=== PATIENT | male | born 1970 | race Caucasian/White ===

== ENCOUNTER 2017-04-24 13:28 | Day surgery (SDC) | payer BC ==
--- NOTE | ~2017-04-24 | OP ---
Record Of Operation [facility] [address] [place]. [address] NAME: DAVEY IVEY III : 72 STATUS : [facility]#: [id number] AGE: 47 ADM/REG DATE : 04/24/17 MR#: [id number] REPORT SERV DATE: 04/24/17 DICTATED BY: CHELSY RIVERA DATE: 04/24/17 REPORT STATUS : Draft TRANSCRIBED BY: MODL DATE: 04/24/17 DATE OF PROCEDURE: 04/24/2017 PREOPERATIVE DIAGNOSIS: Foreign body, left base of tongue. POSTOPERATIVE DIAGNOSIS: Foreign body, left base of tongue, piece of braided wire. PROCEDURES: Microscopic direct laryngoscopy with removal of foreign body. INDICATIONS: Davey Ivey had a sensation of pain and tenderness in the throat since he ate barbecue about 48 hours ago. In the clinic yesterday, I was able to see a wire protruding from his left base of tongue, almost down into the vallecula on that side. I counseled him about the risks, benefits, and alternatives of this procedure. The risks include, but are not limited to pain, bleeding, infection, and scarring. He voiced an understanding of those risks and he signed a consent form. DESCRIPTION OF PROCEDURE: Davey was brought to the operating room and positioned on the table in the supine manner. General endotracheal anesthesia was induced. The table was rotated 90 degrees. The patient was prepped and draped in the usual fashion. We intubated with a GlideScope and could actually see the tip of this wire on the GlideScope at intubation. I placed the tooth guard on the upper teeth and used the Dedo laryngoscope to get a good look at his left base of tongue and found a protruding wire down in the vallecula. This was removed with a large cup forceps and we sent that to Pathology for gross identification. Careful examination of the rest of the vallecula, the piriform sinus on both sides, and the hypopharynx and oropharynx revealed no other foreign bodies. The larynx itself looked good and his true vocal cords were normal. The patient was thoroughly suctioned and the Dedo laryngoscope was removed. We did not use the Lewy suspension at any time during this procedure. The white mouth guard was also removed. The patient was cleaned up. He was returned to anesthesia control and extubated in the operating room and moved to the recovery room in good condition. FINDINGS: 1. Silver braided wire removed from left vallecula. 2. Otherwise, normal larynx. The wire was shown to his when I counseled her after the procedure. I also left him with a photograph that we took of the wire. Another photograph was left in the chart. TYRON/CLEMENT Chelsy Rivera M.D. Record Of Operation [address] [address] NAME: DAVEY IVEY III : 72 STATUS : [facility] PAT#: [id number] AGE: 47 ADM/REG DATE : 04/24/17 MR#: [id number] REPORT SERV DATE: 04/24/17 DICTATED BY: CHELSY RIVERA DATE: 04/24/17 REPORT STATUS : Draft TRANSCRIBED BY: CLEMENT DATE: 04/24/17 / [id number] CC: Connie Parsons
[~2017-04-24 13:28] MED LIST: [UNRECOGNIZED DRUG - REMARK] PO
[2017-04-24 14:07] LABS: HEMATOCRIT 45.4 % (40.0-51.0); HEMOGLOBIN 15.7 g/dL (13.6-17.8)
== END 2017-04-24 18:15 | disposition home or self-care (01) ==
LOC: SDC 13:28
PROVIDERS: Otolaryngology
PROC: 0CCS8ZZ Extirpation of Matter from Larynx, Via Natural or Artificial Opening Endoscopic (ICD-10-PCS; principal; 2017-04-24 15:15)
DX: T17.308A Unspecified foreign body in larynx causing other injury, initial encounter (principal); Z79.899 Other long term (current) drug therapy; Z86.73 Personal history of transient ischemic attack (TIA), and cerebral infarction without residual deficits; Z98.890 Other specified postprocedural states
CPT/HCPCS: 85014; 85018; 88300; A9270-GY; J0330; J2250; J3010